=== PATIENT | male | born 1950 | race American Indian/Alaskan Native ===

== ENCOUNTER 2021-10-21 12:08 | Outpatient (CLI) | payer OTHER ==
--- NOTE | 2021-10-21 16:20 | Cat Scan Report ---
CT CHEST WITHOUT CONTRAST INDICATION / CLINICAL INFORMATION: Smoker. TECHNIQUE: Axial CT images were obtained through the chest without contrast. All CT scans at this location are p erformed using CT dose reduction for ALARA by means of automated exposure control. COMPARISON: None available. FINDINGS: THORACIC AORTA: Mild atherosclerotic calcification without acute abnormality. CORONARY ARTERY CALCIFICATION: Mild coronary artery calcifications. HEART: Mild cardiac enlargement. Trace pericardial effusion. MEDIASTINUM / SUSHILA: No significant thoracic lymphadenopathy. LUNGS/PLEURA: Mild-moderate apical predominant centrilobular and paraseptal emphysema. No acute inter stitial or airspace disease. There is a 4 mm nodule in the left upper lobe (series 2 image 65). No ad ditional nodules identified. No pleural effusion or pneumothorax. ADDITIONAL CHEST FINDINGS: None. UPPER ABDOMEN: No significant abnormality. SKELETAL SYSTEM: No significant abnormality. IMPRESSION: 1. Mild-moderate emphysema. No acute airspace disease. 2. Single incidental pulmonary nodule(s) in the left upper lobe measuring 4 mm with solid characteris tics. Recommendation according to Fleischner Society 2017 Guidelines: Low Risk Patient: No routine fo llow-up; High Risk Patient: Optional CT at 12 months. 3. Other incidental findings as above. Signer Name: Chas Carias MD Signed: 10/21/2021 4:15 PM Workstation Name: [id number]
== END 2021-10-21 12:09 | disposition home or self-care (01) ==
LOC: CT 12:08
PROVIDERS: ATTEND Family Medicine
DX: J43.2 Centrilobular emphysema (principal); I25.10 Atherosclerotic heart disease of native coronary artery without angina pectoris; Z87.891 Personal history of nicotine dependence
CPT/HCPCS: 71250